=== PATIENT | male | born 2005 | race Caucasian/White ===

== ENCOUNTER 2025-08-22 23:51 | Emergency (ER) | payer BC ==
[2025-08-23] MEDS ORDERED: HYDROcodone/Acetaminophen 5/325 mg Tablet ONE (00:11)
[2025-08-23] MEDS ORDERED: Ibuprofen 800 MG TAB ONE (00:11)
== END 2025-08-23 00:35 | disposition home or self-care (01) ==
LOC: ERS 23:51
DX: S42.022A Displaced fracture of shaft of left clavicle, initial encounter for closed fracture (principal); W18.30XA Fall on same level, unspecified, initial encounter; Y93.61 Activity, american tackle football
CPT/HCPCS: 99283